=== PATIENT | male | born 1995 | race Caucasian/White ===

== ENCOUNTER 2020-11-10 10:40 | Emergency (ER) | payer OTHER ==
[~2020-11-10] VITALS: Ht 180.3 cm; Wt 88.6 kg
[2020-11-10 10:52] VITALS: Ht 180.3 cm; Wt 88.6 kg
[2020-11-10] MEDS ORDERED: HYDROCODON-ACE1 EA10 PO (11:42)
[2020-11-10 11:48] VITALS: BP 128/65
== END 2020-11-10 11:48 | disposition home or self-care (01) ==
LOC: D.ER 10:40
DX: S62.306A Unspecified fracture of fifth metacarpal bone, right hand, initial encounter for closed fracture (principal); M79.10 Myalgia, unspecified site; W22.8XXA Striking against or struck by other objects, initial encounter; Y93.9 Activity, unspecified; Y92.9 Unspecified place or not applicable